=== PATIENT | female | born 1945 | race Caucasian/White ===

== ENCOUNTER 2016-12-19 09:35 | Emergency (ER) | payer MEDICARE ==
--- NOTE | 2016-12-19 11:29 | UC ---
Minor Trauma HPI - HPI Summary HPI Summary: 71 yo female fell forward (trip) about a wk ago no LOC c/o right knee pain also mild nose pain and bilateral hand pain no neck pain no DORSEY has chronic back pain - History of Current Complaint Chief Complaint: UCTrauma Stated Complaint: FELL HAND FACE AND KNEE INJURY Time Seen by Provider: 12/19/16 11:02 Hx Obtained From: Patient Onset/Duration: Sudden Onset, Lasting Days Severity Initially: Moderate Severity Currently: Moderate Pain Intensity: 4 Pain Scale Used: 0-10 Numeric Mechanism Of Injury: Fall From A Standing Position Aggravating Factor(s): Ambulation Alleviating Factor(s): Rest Associated Signs And Symptoms: Positive: Ecchymosis, Swelling - Allergies/Home Medications Allergies/Adverse Reactions: Allergies Allergy/AdvReac Type Severity Reaction Status Date / Time Clindamycin/Lincomycin Allergy Unknown Hives Verified 12/19/16 09:56 Erythromycin Allergy Unknown Hives Verified 12/19/16 09:56 Penicillins Allergy Unknown Hives Verified 12/19/16 09:56 Sucralfate [From Carafate] Allergy Hives Verified 12/19/16 12:19 Morphine and Related AdvReac Unknown Unknown Verified 09/07/15 09:41 Reaction Details Home Medications: Home Medications Artificial Tear Ointment [Refresh P.m] 1 applic OPHTHALMIC DAILY 12/19/16 [ History Confirmed 12/19/16] Dexlansoprazole (NF) [Dexilant (NF)] 1 tab PO DAILY 12/19/16 [History Confirmed 12/19/16] Dicyclomine CAP* [Bentyl CAP*] 20 mg PO TID AC 12/19/16 [History Confirmed 12/19] Hydrocortisone 1% CREAM* [Hytone Cream 1%*] 1 applic TOPICAL BID 12/19/16 [ History Confirmed 12/19/16] Ketoconazole (Topical) [Ketoconazole] 1 applic TOPICAL DAILY 12/19/16 [History Confirmed 12/19/16] PMH/Surg Hx/FS Hx/Imm Hx Previously Healthy: No - chronic back pain/djd Cardiovascular History: Hypertension - Surgical History Surgical History: Yes Surgery Procedure, Year, and Place: 1976 rupal,bilat knees,tens unit neuro stimulator,back [id number] spine plate per pt, - Family History Known Family History: Positive: Hypertension, Diabetes - Social History Alcohol Use: None Substance Use Type: None Smoking Status (MU): Never Smoked Tobacco - Immunization History Most Recent Influenza Vaccination: 2014 Most Recent Tetanus Shot: up to date Most Recent Pneumonia Vaccination: received Review of Systems Constitutional: Negative Skin: Bruising Eyes: Negative ENT: Negative Respiratory: Negative Cardiovascular: Negative Gastrointestinal: Negative Genitourinary: Negative Motor: Negative Neurovascular: Negative Musculoskeletal: Arthralgia, Myalgia Neurological: Negative Psychological: Negative All Other Systems Reviewed And Are Negative: Yes Physical Exam Triage Information Reviewed: Yes Appearance: Well-Appearing, No Pain Distress, Well-Nourished Vital Signs: Initial Vital Signs Temp 98.2 F 12/19/16 09:58 Pulse 65 12/19/16 09:58 Resp 20 12/19/16 09:58 BP 147/95 12/19/16 09:58 Pulse Ox 96 12/19/16 09:58 Vital Signs Reviewed: Yes Eyes: Positive: Conjunctiva Clear ENT: Positive: Hearing grossly normal. Negative: Nasal congestion, Nasal drainage, Trismus Neck: Positive: Supple, Nontender Respiratory: Positive: Lungs clear, Normal breath sounds, No respiratory distress, No accessory muscle use Cardiovascular: Positive: RRR, No Murmur Neurological: Positive: Alert Psychological Exam: Normal Skin Exam: Normal Minor Trauma Course/Dx - Differential Dx/Diagnosis Provider Diagnoses: right knee contusion. nasal contusion. bilateral hand contusions Discharge - Discharge Plan Condition: Stable Disposition: HOME Patient Education Materials: Contusion in Adults (ED) Referrals: No Primary Care Phys,NOPCP [Primary Care Provider] - Additional Instructions: see your back specialist as planned rest ice elevation Images Head: 1 - tender/swollen/no deformity Hands: 1 - tender 2 - tender Front/Back of Body, Lg (Bowman): 1 - swollen/ecchymotic. both hips FROM
[2016-12-19 12:11] VITALS: BP 159/92
--- NOTE | 2016-12-19 12:33 | RAD ---
INDICATION: Right knee injury. TECHNIQUE: 4 views of the right knee were obtained. FINDINGS: The patient is status post total right knee replacement surgery. The bones and prostheses are in normal alignment. No fracture is seen. IMPRESSION: POSTSURGICAL CHANGES, NO EVIDENCE FOR FRACTURE.
--- NOTE | 2016-12-19 12:35 | RAD ---
INDICATION: Right femur injury. TECHNIQUE: 2 views of the right femur were obtained. FINDINGS: The patient is status post total right knee replacement surgery. The bones and prostheses are in normal alignment. No fracture is seen. IMPRESSION: POSTSURGICAL CHANGES, NO EVIDENCE FOR FRACTURE.
--- NOTE | 2016-12-19 12:36 | RAD ---
INDICATION: Nasal bone trauma. TECHNIQUE: 3 views of the nasal bones were obtained including lateral and Vela views. FINDINGS: There is soft tissue swelling present over the bridge of the nose. No fracture is seen. IMPRESSION: NO EVIDENCE FOR FRACTURE.
== END 2016-12-19 13:10 | disposition home or self-care (01) ==
LOC: UCEAST 09:35
DX: I10 Essential (primary) hypertension (principal); S80.01XA Contusion of right knee, initial encounter; S00.33XA Contusion of nose, initial encounter; S60.222A Contusion of left hand, initial encounter; S60.221A Contusion of right hand, initial encounter; M25.561 Pain in right knee; W19.XXXA Unspecified fall, initial encounter; Y93.9 Activity, unspecified; Y92.9 Unspecified place or not applicable; Y99.9 Unspecified external cause status; M54.9 Dorsalgia, unspecified; G89.29 Other chronic pain
CPT/HCPCS: 70160; 99211; G0463

== ENCOUNTER 2017-06-18 09:33 | Emergency (ER) | payer MEDICARE ==
--- NOTE | 2017-06-18 10:34 | UC ---
Complaint Female HPI - HPI Summary HPI Summary: 5 DAYS OF DARK COLORED URINE AND SOME DISCOMFORT WITH URINATION. IS FEELING EXTREMELY WEAK AND TIRED. HAS OVERALL MALAISE, DECREASED APPETITE. DENIES NAUSEA. NO FEVER. NO URI SX. AT [facility] AMBULATES WITH A WALKER WITHOUT DIFFICULTY. NOW STATES SHE CAN NOT EVEN WALK FROM THE WAITING ROOM TO THE EXAM ROOM WITHOUT BECOMING EXTREMELY TIRED. DENIES SOB/CP. - History Of Current Complaint Chief Complaint: UCGU Stated Complaint: UTI Time Seen by Provider: 06/18/17 09:36 Hx Obtained From: Patient Onset/Duration: Gradual Onset, Lasting Days, Still Present Timing: Constant Severity Initially: Moderate Severity Currently: Moderate Pain Intensity: 0 Pain Scale Used: 0-10 Numeric Character: Burning Aggravating Factor(s): Urination Alleviating Factor(s): Nothing Associated Signs And Symptoms: Negative: Fever, Nausea - Allergies/Home Medications Allergies/Adverse Reactions: Allergies Allergy/AdvReac Type Severity Reaction Status Date / Time Clindamycin/Lincomycin Allergy Unknown Hives Verified 12/19/16 09:56 Erythromycin Allergy Unknown Hives Verified 12/19/16 09:56 Penicillins Allergy Unknown Hives Verified 12/19/16 09:56 Sucralfate [From Carafate] Allergy Hives Verified 12/19/16 12:19 Morphine and Related AdvReac Unknown Unknown Verified 09/07/15 09:41 Reaction Details PMH/Surg Hx/FS Hx/Imm Hx - Additional Past Medical History Additional PMH: CHRONIC BACK PAIN Cardiovascular History: Hypertension Other Cancer History: SKIN CANCER - Surgical History Surgical History: Yes Surgery Procedure, Year, and Place: 1976 rupal,bilat knees,tens unit neuro stimulator,back [id number] spine plate per pt, - Family History Known Family History: Positive: Hypertension, Diabetes - Social History Alcohol Use: None Substance Use Type: None Smoking Status (MU): Never Smoked Tobacco - Immunization History Most Recent Influenza Vaccination: 2015 Most Recent Tetanus Shot: up to date Most Recent Pneumonia Vaccination: received Review of Systems Constitutional: Negative Respiratory: Negative Cardiovascular: Negative Gastrointestinal: Abdominal Pain, Other - FEELS BLOATED Genitourinary: Dysuria, Other - DARK FOUL SMELLING URINE All Other Systems Reviewed And Are Negative: Yes Physical Exam Triage Information Reviewed: Yes Appearance: Well-Appearing, No Pain Distress, Well-Nourished Vital Signs: Initial Vital Signs Temp 97.2 F 06/18/17 09:39 Pulse 75 06/18/17 09:39 Resp 18 06/18/17 09:39 BP 159/83 06/18/17 09:39 Pulse Ox 97 06/18/17 09:39 Vital Signs Reviewed: Yes Eyes: Positive: Conjunctiva Clear ENT: Positive: Hearing grossly normal Neck: Positive: Supple Respiratory Exam: Normal Cardiovascular Exam: Normal Abdomen Description: Positive: Soft, CVA Tenderness (R), Other: - TTP UPPER ABDOMEN. NO REBOUND OR RIGIDITY.. Negative: CVA Tenderness (L), Distended Musculoskeletal: Positive: No Edema Neurological: Positive: Alert Psychological: Positive: Age Appropriate Behavior Skin: Negative: rashes Diagnostics - Laboratory Diagnostic Studies Completed/Ordered: URINE DIP UNREMARKABLE - Radiology CT ABD/PELVIS W/O CONTRAST Xray Interpretation: Positive (See Comments) - No definite obstructive uropathy is noted. Incidentally noted is a right renal cyst. Radiology Interpretation Completed By: Radiologist Complaint Female Dx - Course Course Of Treatment: [place] [facility] [place] [facility] - Differential Dx/Diagnosis Provider Diagnoses: ABDOMINAL PAIN/WEAKNESS/FATIGUE Discharge - Discharge Plan Condition: Stable Disposition: OTHER Discharge Disposition Comment: [place] [facility] [place] [facility] Patient Education Materials: Abdominal Pain (ED) Referrals: Loree RG,Janusz Huynh [Medical Doctor] - If Needed Additional Instructions: CT SHOWS A SMALL RIGHT RENAL CYST BUT NO CLEAR REASON FOR YOUR DISCOMFORT AND WEAKNESS/FATIGUE. GO DIRECTLY [place] [facility] [place] HERE FOR FURTHER EVALUATION.
[2017-06-18 11:39] VITALS: BP 128/78
--- NOTE | 2017-06-18 11:44 | RAD ---
Indication: Right flank pain. CT of the abdomen and pelvis was performed without oral or IV contrast administration. Coronal and sagittal reconstructed images were obtained. Lung bases demonstrate no pleural fluid, nodules or masses. Degenerative changes of the lower thoracic spine is noted. Liver is normal in size. No focal lesions or intrahepatic ductal dilatation is noted. Patient status post cholecystectomy. Pancreas demonstrates no mass or pancreatic ductal dilatation. The spleen is normal in size. No adrenal lesions are noted. The kidneys demonstrate no hydronephrosis in either kidney. No hydroureter is noted. There is likely a lower pole cyst in the right kidney measuring up to 2.5 cm. Atherosclerotic aorta is noted. The common iliac arteries are unremarkable. The uterus and ovaries are unremarkable. No dilated loops of bowel are noted. CT of the pelvis demonstrates no retroperitoneal or pelvic lymphadenopathy. Urinary bladder is unremarkable. There is laxity of the anterior abdominal wall without definite hernia. The right sacroiliac joint is noted. The uterus and ovaries are grossly unremarkable. The bony structures demonstrates postoperative changes in the lumbar spine. IMPRESSION: No definite obstructive uropathy is noted. Incidentally noted is a right renal cyst.
== END 2017-06-18 12:03 ==
LOC: UCEAST 09:33
DX: R10.10 Upper abdominal pain, unspecified (principal); R53.1 Weakness; R53.83 Other fatigue; R30.0 Dysuria; I10 Essential (primary) hypertension; Z85.828 Personal history of other malignant neoplasm of skin; Z90.49 Acquired absence of other specified parts of digestive tract; Z88.1 Allergy status to other antibiotic agents; Z88.5 Allergy status to narcotic agent; Z88.0 Allergy status to penicillin
CPT/HCPCS: 74176; 81003; 99212; G0463

== ENCOUNTER 2017-06-18 12:33 | Emergency (ER) | payer MEDICARE ==
[2017-06-18 14:29] LABS: ABS Basophils 0.1 10^3/ul (0-0.2); ABS Eosinophils 0.2 10^3/ul (0-0.6); ABS Lymphocytes 1.8 10^3/ul (1.0-4.8); ABS Monocytes 1.3 10^3/ul (0-0.8); ABS Neutrophils 4.1 10^3/ul (1.5-7.7); ABS Nucleated RBC 0 10^3/ul; Eosinophil % 2.2 % (0-6); Hematocrit 38 % (35-47); Hemoglobin 12.6 g/dl (12.0-16.0); Lymphocyte % 24.5 % (25-47); Mean Corpuscular HGB Conc 33 g/dl (31-36); Mean Corpuscular Hemoglobin 30 pg (27-31); Mean Corpuscular Volume 90 fL (80-97); Mean Platelet Volume 9 um3 (7.4-10.4); Nucleated Red Blood Cells % 0; Platelet Count 221 10^3/ul (150-450); Red Blood Count 4.18 10^6/ul (4.0-5.4); Red Cell Distribution Width 14 % (10.5-15); White Blood Count 7.4 10^3/ul (3.5-10.8)
[2017-06-18 14:45] LABS: Urine Appearance Clear; Urine Blood Negative (Negative); Urine Color Yellow; Urine Ketones Negative (Negative); Urine Protein Negative (Negative); Urine Specific Gravity 1.004 (1.010-1.030); Urine Urobilinogen Negative (Negative)
[2017-06-18 15:11] LABS: INR 1.01 (0.77-1.02)
--- NOTE | 2017-06-18 17:54 | RAD ---
HISTORY: Epigastric pain x1 week. Relevant surgical history includes a cholecystectomy. COMPARISONS: CT abdomen pelvis dated June 18, 2017 TECHNIQUE: Multiple transverse and longitudinal ultrasound images were obtained of the right upper quadrant. FINDINGS: LIVER: The liver exhibits homogenous increased echogenicity and is top normal measuring 20.9 cm in maximum cephalocaudal dimension. Normal hepatic and portal venous blood flow is duplicated with color flow imaging. There is no gross intrahepatic biliary duct dilatation. GALLBLADDER AND EXTRAHEPATIC BILIARY DUCT: The gallbladder is surgically absent. The gallbladder exhibits a maximum width of 9 mm. PANCREAS: The portions of the pancreas not obscured by bowel gas are normal in appearance. RIGHT KIDNEY: A benign-appearing cyst is noted in the right kidney. Otherwise the right kidney is normal in size, morphology and echogenicity. AORTA AND IVC: The visualized portions are normal in appearance and not pathologically dilated. IMPRESSION: 1. HOMOGENOUSLY INCREASED ECHOGENICITY COULD BE SEEN IN THE SETTING OF HEPATIC STEATOSIS. 2. APPROPRIATELY DILATED COMMON BILE DUCT TO 9 MM IN THE PATIENT WITH A HISTORY OF CHOLECYSTECTOMY.
[2017-06-18 19:38] VITALS: BP 169/80
--- NOTE | 2017-06-19 12:29 | ED ---
Mark Lopes Thomas, scribed for Roman Jenkins MD on 06/18/17 at 1405 . Abdominal Pain/Female - HPI Summary HPI Summary: This patient is a 71 year old F presenting to [facility] with a chief complaint of abdominal pain since 3 days ago. The patient describes the pain as bloating. The patient rates the pain 5/10 in severity. Symptoms aggravated by palpation and alleviated by nothing. Patient reports my stomach feels likes Im . Patient additionally complains of bright yellow urine, generalized weakness , and she is unable to stand or ambulate. Patient denies vomiting, diarrhea, nausea, and cough. - History of Current Complaint Chief Complaint: EDAbdPain Stated Complaint: ABD PAIN Time Seen by Provider: 06/18/17 13:26 Hx Obtained From: Patient Onset/Duration: Gradual Onset, Lasting Days - 3, Still Present Timing: Constant Severity Currently: Moderate Pain Intensity: 5 Pain Scale Used: 0-10 Numeric - 5 Location: Diffuse Character: Other: - The patient describes the pain as bloating. Aggravating Factor(s): Other: - Palpation Alleviating Factor(s): Nothing Associated Signs and Symptoms: Positive: Other: - The patient describes the pain as bloating. Allergies/Adverse Reactions: Allergies Allergy/AdvReac Type Severity Reaction Status Date / Time Clindamycin/Lincomycin Allergy Unknown Hives Verified 06/18/17 13:25 Erythromycin Allergy Unknown Hives Verified 06/18/17 13:25 Penicillins Allergy Unknown Hives Verified 06/18/17 13:25 Sucralfate [From Carafate] Allergy Hives Verified 06/18/17 13:25 Morphine and Related AdvReac Unknown Unknown Verified 06/18/17 13:25 Reaction Details PMH/Surg Hx/FS Hx/Imm Hx Endocrine/Hematology History: Denies: Hx Diabetes Cardiovascular History: Reports: Hx Hypertension History: Reports: Hx Renal Disease - abnormal gfr - Cancer History Cancer Type, Location and Year: multiple skin surgeries - Surgical History Surgery Procedure, Year, and Place: 1976 rupal,bilat knees,tens unit neuro stimulator,back [id number] spine plate per pt, Infectious Disease History: No Infectious Disease History: Denies: Hx Shingles, History Other Infectious Disease, Traveled Outside the [place] in Last 30 Days - Family History Known Family History: Positive: Hypertension, Diabetes - Social History Alcohol Use: None Substance Use Type: Reports: None Smoking Status (MU): Never Smoked Tobacco Review of Systems Negative: Fever Negative: Cough Positive: Abdominal Pain. Negative: Vomiting, Diarrhea, Nausea Positive: Other - Generalized weakness, and she is unable to stand or ambulate All Other Systems Reviewed And Are Negative: Yes Physical Exam - Summary Physical Exam Summary: Appearance: The patient is well-nourished in no acute distress and in no acute pain. Skin: The skin is warm and dry and skin color reflects adequate perfusion. HEENT: The head is normocephalic and atraumatic. The pupils are equal and reactive. The conjunctivae are clear and without drainage. Nares are patent and without drainage. Mouth reveals moist mucous membranes and the throat is without erythema and exudate. The external ears are intact. The ear canals are patent and without drainage. The tympanic membranes are intact. Neck: the neck is supple with full range of motion and non-tender. There are no carotid bruits. There is no neck vein distension. Respiratory: Chest is non-tender. Lungs are clear to auscultation and breath sounds are symmetrical and equal. Cardiovascular: Heart is regular rate and rhythm. There is no murmur or rub auscultated. There is no peripheral edema and pulses are symmetrical and equal. Abdomen: The abdomen is soft and periumbilical tenderness is present. There are normal bowel sounds heard in all four quadrants with no rebound or guarding, and there is no organomegaly palpated. Musculoskeletal: There is no back tenderness noted. Extremities are non-tender with full range of motion. There is good capillary refill. There is no peripheral edema or calf tenderness elicited. Neurological: Patient is alert and oriented to person, place and time. The patient has symmetrical motor strength in all four extremities. Cranial nerves are grossly intact. Deep tendon reflexes are symmetrical and equal in all four extremities. Psychiatric: The patient has an appropriate affect and does not exhibit any anxiety or depression. Triage Information Reviewed: Yes Vital Signs On Initial Exam: Initial Vitals Temp Pulse Resp BP Pulse Ox 97.2 F 72 20 172/108 98 06/18/17 12:42 06/18/17 12:42 06/18/17 12:42 06/18/17 12:42 06/18/17 12:42 Vital Signs Reviewed: Yes - Miguel Coma Scale Coma Scale Total: 15 Diagnostics - Vital Signs Vital Signs Temp Pulse Resp BP Pulse Ox 06/18/17 12:42 97.2 F 72 20 172/108 98 - Laboratory Lab Results: Lab Results 06/18/17 06/18/17 06/18/17 Range/Units 14:10 14:10 14:10 WBC 7.4 (3.5-10.8) 10^3/ul RBC 4.18 (4.0-5.4) 10^6/ul Hgb 12.6 (12.0-16.0) g/dl Hct 38 (35-47) % MCV 90 (80-97) fL MCH 30 (27-31) pg MCHC 33 (31-36) g/dl RDW 14 (10.5-15) % Plt Count 221 (150-450) 10^3/ul MPV 9 (7.4-10.4) um3 Neut % (Auto) 55.0 (38-83) % Lymph % (Auto) 24.5 L (25-47) % Dubois % (Auto) 17.4 H (1-9) % Eos % (Auto) 2.2 (0-6) % Baso % (Auto) 0.9 (0-2) % Absolute Neuts (auto) 4.1 (1.5-7.7) 10^3/ul Absolute Lymphs (auto) 1.8 (1.0-4.8) 10^3/ul Absolute Monos (auto) 1.3 H (0-0.8) 10^3/ul Absolute Eos (auto) 0.2 (0-0.6) 10^3/ul Absolute Basos (auto) 0.1 (0-0.2) 10^3/ul Absolute Nucleated RBC 0 10^3/ul Nucleated RBC % 0 INR (Anticoag Therapy) 1.01 (0.77-1.02) Sodium 136 (133-145) mmol/L Potassium 3.1 L (3.5-5.0) mmol/L Chloride 100 L (101-111) mmol/L Carbon Dioxide 26 (22-32) mmol/L Anion Gap 10 (2-11) mmol/L BUN 20 (6-24) mg/dL Creatinine 0.87 (0.51-0.95) mg/dL Est GFR ( Amer) 82.3 (>60) Est GFR (Non-Af Amer) 64.0 (>60) BUN/Creatinine Ratio 23.0 H (8-20) Glucose 106 H (70-100) mg/dL Lactic Acid (0.5-2.0) mmol/L Calcium 9.0 (8.6-10.3) mg/dL Total Bilirubin 1.40 H (0.2-1.0) mg/dL AST 36 (13-39) U/L ALT 84 H (7-52) U/L Alkaline Phosphatase 192 H (34-104) U/L Troponin I 0.01 (<0.04) ng/mL C-Reactive Protein 101.51 H (< 5.00) mg/L Total Protein 6.9 (6.4-8.9) g/dL Albumin 3.4 (3.2-5.2) g/dL Globulin 3.5 (2-4) g/dL Albumin/Globulin Ratio 1.0 (1-3) Lipase 25 (11.0-82.0) U/L Urine Color Urine Appearance Urine pH (5-9) Ur Specific Roscoe (1.010-1.030) Urine Protein (Negative) Urine Ketones (Negative) Urine Blood (Negative) Urine Nitrate (Negative) Urine Bilirubin (Negative) Urine Urobilinogen (Negative) Ur Leukocyte Esterase (Negative) Urine Glucose (Negative) 06/18/17 06/18/17 Range/Units 14:10 14:25 WBC (3.5-10.8) 10^3/ul RBC (4.0-5.4) 10^6/ul Hgb (12.0-16.0) g/dl Hct (35-47) % MCV (80-97) fL MCH (27-31) pg MCHC (31-36) g/dl RDW (10.5-15) % Plt Count (150-450) 10^3/ul MPV (7.4-10.4) um3 Neut % (Auto) (38-83) % Lymph % (Auto) (25-47) % Dubois % (Auto) (1-9) % Eos % (Auto) (0-6) % Baso % (Auto) (0-2) % Absolute Neuts (auto) (1.5-7.7) 10^3/ul Absolute Lymphs (auto) (1.0-4.8) 10^3/ul Absolute Monos (auto) (0-0.8) 10^3/ul Absolute Eos (auto) (0-0.6) 10^3/ul Absolute Basos (auto) (0-0.2) 10^3/ul Absolute Nucleated RBC 10^3/ul Nucleated RBC % INR (Anticoag Therapy) (0.77-1.02) Sodium (133-145) mmol/L Potassium (3.5-5.0) mmol/L Chloride (101-111) mmol/L Carbon Dioxide (22-32) mmol/L Anion Gap (2-11) mmol/L BUN (6-24) mg/dL Creatinine (0.51-0.95) mg/dL Est GFR ( Amer) (>60) Est GFR (Non-Af Amer) (>60) BUN/Creatinine Ratio (8-20) Glucose (70-100) mg/dL Lactic Acid 0.8 (0.5-2.0) mmol/L Calcium (8.6-10.3) mg/dL Total Bilirubin (0.2-1.0) mg/dL AST (13-39) U/L ALT (7-52) U/L Alkaline Phosphatase (34-104) U/L Troponin I (<0.04) ng/mL C-Reactive Protein (< 5.00) mg/L Total Protein (6.4-8.9) g/dL Albumin (3.2-5.2) g/dL Globulin (2-4) g/dL Albumin/Globulin Ratio (1-3) Lipase (11.0-82.0) U/L Urine Color Yellow Urine Appearance Clear Urine pH 6.0 (5-9) Ur Specific Roscoe 1.004 L (1.010-1.030) Urine Protein Negative (Negative) Urine Ketones Negative (Negative) Urine Blood Negative (Negative) Urine Nitrate Negative (Negative) Urine Bilirubin Negative (Negative) Urine Urobilinogen Negative (Negative) Ur Leukocyte Esterase Negative (Negative) Urine Glucose Negative (Negative) Result Diagrams: 06/18/17 14:10 06/18/17 14:10 Lab Statement: Any lab studies that have been ordered have been reviewed, and results considered in the medical decision making process. - Additional Comments Diagnostic Additional Comments: Abdominal US reveals, per radiologist, 1. HOMOGENOUSLY INCREASED ECHOGENICITY COULD BE SEEN IN THE SETTING OF HEPATIC STEATOSIS. 2. APPROPRIATELY DILATED COMMON BILE DUCT TO 9 MM IN THE PATIENT WITH A HISTORY OF CHOLECYSTECTOMY. ED physician has reviewed this radiology report. Abdominal Pain Fem Course/Dx - Course Course Of Treatment: Ms. Cary presented with nondescript abdominal pain and bloating. She came from [facility] where she had a negative noncontrast abd/pelvis CT scan. She had periumbilical and RUQ tenderness mildly. Her labs revealed some transaminase elevations and U/S of her RUQ was negative. I'm not sure if this is medication induced or viral but I reassured her and recommended close F/ U to reevaluate her liver function. - Diagnoses Provider Diagnoses: Abdominal pain, Elevated transaminase level Discharge - Discharge Plan Condition: Stable Disposition: HOME Prescriptions: traMADol TAB* [Ultram*] 25 mg PO Q6HR PRN #20 tab MDD 4 PRN Reason: Pain Patient Education Materials: Abdominal Pain (ED) Referrals: Loree RG,Janusz Huynh [Primary Care Provider] - 3 Days Additional Instructions: Follow up with Dr. Ralph in 3-4 days. The documentation as recorded by the Mark schaefer Thomas accurately reflects the service I personally performed and the decisions made by , Roman Jenkins MD.
== END 2017-06-18 19:48 | disposition home or self-care (01) ==
LOC: ED 12:33
DX: R10.9 Unspecified abdominal pain (principal); R74.0 Nonspecific elevation of levels of transaminase and lactic acid dehydrogenase [LDH]; Z90.49 Acquired absence of other specified parts of digestive tract; Z88.3 Allergy status to other anti-infective agents; Z88.0 Allergy status to penicillin; Z88.8 Allergy status to other drugs, medicaments and biological substances
CPT/HCPCS: 36415; 76705; 80053; 81003; 83605; 83690; 84484; 85025; 85610; 86140; 99283

== ENCOUNTER 2017-10-30 09:29 | Emergency (ER) | payer MEDICARE ==
--- NOTE | 2017-10-30 09:53 | UC ---
Respiratory Complaint HPI - HPI Summary HPI Summary: 72 yo female presents with fatigue, intermittent dizziness, and dry cough for the last 2-3 days. Does notice that she feels more short of breath with exertion recently. Has been taking her medications as prescribed. Denies fever, chills, sore throat, headache, SOB, chest pain, n/v/d, dysuria. Also has RUQ pain, but she tells me that this is chronic and is being worked up by PCP and Surgeon. - History of Current Complaint Stated Complaint: COUGH/CHEST IN PAIN AND STOMACH Time Seen by Provider: 10/30/17 09:53 Hx Obtained From: Patient Character: Cough: Nonproductive - Allergies/Home Medications Allergies/Adverse Reactions: Allergies Allergy/AdvReac Type Severity Reaction Status Date / Time clindamycin Allergy Hives Verified 10/30/17 10:00 erythromycin base Allergy Hives Verified 10/30/17 10:00 morphine Allergy Unknown Verified 10/30/17 10:00 Reaction Details Penicillins Allergy Hives Verified 10/30/17 10:00 sucralfate [From Carafate] Allergy Hives Verified 10/30/17 10:00 Home Medications: Home Medications Diclofenac 1% GEL (NF) [Voltaren 1% GEL (NF)] 1 applic TOPICAL 10/30/17 [History ] PMH/Surg Hx/FS Hx/Imm Hx Cardiovascular History: Cardiac Disease, Hypertension - Surgical History Surgical History: Yes Surgery Procedure, Year, and Place: 1976 rupal,bilat knees,tens unit neuro stimulator,back [id number] spine plate per pt, - Family History Known Family History: Positive: Hypertension, Diabetes - Social History Occupation: Retired Lives: With Family Alcohol Use: None Substance Use Type: None Smoking Status (MU): Never Smoked Tobacco - Immunization History Most Recent Influenza Vaccination: 2014 Most Recent Tetanus Shot: up to date Most Recent Pneumonia Vaccination: received Review of Systems Constitutional: Negative Skin: Negative Eyes: Negative ENT: Negative Respiratory: Cough Cardiovascular: Other - PEREZ Gastrointestinal: Abdominal Pain Genitourinary: Negative Neurovascular: Negative Musculoskeletal: Negative Neurological: Negative Psychological: Negative All Other Systems Reviewed And Are Negative: Yes Physical Exam - Summary Physical Exam Summary: GENERAL: NAD. Obese SKIN: No rashes, sores, ulcers, masses, lesions. HEENT: Head: AT/NC Eyes: PERRLA. EOM intact. Conjunctiva clear without inflammation or discharge. Ears: Hearing grossly normal. TMs intact, no bulging, erythema, or edema. Nose: Nasal mucosa pink and moist. NTTP maxillary and frontal sinus. Throat: Posterior oropharynx without exudates, erythema, or tonsillar enlargement. Uvula midline. NECK: Supple. Nontender. No lymphadenopathy. CHEST: CTAB. No r/r/w. No accessory muscle use. Breathing comfortably and in no distress. CV: Pulses intact and irregular. Brisk cap refill. ABDOMEN: Soft. Mild TTP RUQ. No distention or guarding. No CVA tenderness. Bowel sounds present NEURO: A&Ox3. CN II-XII grossly intact. Finger to nose intact. Strength symmetric b/l UEs and LEs. Normal speech. No facial drooping. PSYCH: Age appropriate behavior. Triage Information Reviewed: Yes Vital Signs: Vital Signs: Temp Pulse Resp BP Pulse Ox 98.6 F 65 20 127/80 94 10/30/17 10:01 10/30/17 10:01 10/30/17 10:01 10/30/17 10:01 10/30/17 10:01 Respiratory Course/Dx - Course Course Of Treatment: EKG: Afib rate 59. No ST changes as read by Dr. Brown. Telemetry in July was read as NSR - no more recent for comparison and pt states has no hx of heart problems other than HTN. CXR: IMPRESSION: NO ACTIVE DISEASE. Advised pt to go to the ED for labwork and possible admission for cards consult and intialization of anticoag therapy - she refused. Risks were discussed and pt still refused. Wants to f/u with her PCP and will call them when she leaves here. She signed out AMA. - Differential Dx/Diagnosis Provider Diagnoses: Atrial fibrillation. Fatigue. Cough Discharge - Sign-Out/Discharge Documenting (check all that apply): Discharge/Admit/Transfer - Discharge Plan Condition: Stable Disposition: AGAINST MEDICAL ADVICE Referrals: Loree RG,Janusz Huynh [Primary Care Provider] - - Billing Disposition and Condition Condition: STABLE Disposition: AMA
[2017-10-30 10:05] VITALS: BP 127/80
--- NOTE | 2017-10-30 11:11 | RAD ---
INDICATION: Cough COMPARISON: None TECHNIQUE: PA and lateral dual-energy views were obtained. FINDINGS: Bones/Soft Tissues: There are no acute bony findings. There is osteopenia with kyphoscoliosis Cardiomediastinal: The cardiomediastinal silhouette is normal. Lungs: There are no infiltrates. Pleura: There are no pleural effusions. Other: There is a dorsal column stimulator at T7. IMPRESSION: NO ACTIVE DISEASE
== END 2017-10-30 11:50 | disposition left against medical advice (07) ==
LOC: UCEAST 09:29
DX: I48.91 Unspecified atrial fibrillation (principal); R53.83 Other fatigue; R05 Cough; R10.11 Right upper quadrant pain; I10 Essential (primary) hypertension; Z90.49 Acquired absence of other specified parts of digestive tract; Z88.1 Allergy status to other antibiotic agents; Z88.5 Allergy status to narcotic agent; Z88.0 Allergy status to penicillin
CPT/HCPCS: 71046; 93005; 99212; G0463

== ENCOUNTER 2022-02-02 21:33 | Inpatient (IN) ==
[2022-02-02] MEDS ORDERED: cefTRIAXone 1 gm/50 mL D5W 1 GM/50 ML BAG IV ONE (21:35)
[2022-02-02] MEDS ORDERED: NS 0.9% 1000 ml BAG 1,000 ML IV ONE ×2 (21:35→21:47)
[2022-02-02] MEDS ORDERED: Vancomycin 1,000 MG in NS 0.9% 250 ml 250 ML IVPB ONE (21:47)
[2022-02-02 22:07] LABS: PCO2 Arterial 32 mmHg (35-45); PO2 Arterial 79 mmHg (80-100)
[2022-02-02 22:11] LABS: ABS Basophils 0.1 10^3/ul (0-0.2); ABS Lymphocytes 0.8 10^3/ul (1.0-4.8); ABS Monocytes 0.9 10^3/ul (0-0.8); ABS Neutrophils 9.3 10^3/ul (1.5-7.7); Hematocrit 43 % (35-47); Hemoglobin 14.1 g/dL (12.0-16.0); Lymphocyte % 7.1 %; Mean Corpuscular HGB Conc 33 g/dL (31-36); Mean Corpuscular Hemoglobin 32 pg (27-31); Mean Corpuscular Volume 98 fL (80-97); Mean Platelet Volume 9.4 fL (7.4-10.4); Platelet Count 234 10^3/uL (150-450); Red Blood Count 4.42 10^6 /uL (3.70-4.87); Red Cell Distribution Width 15 % (10-15); White Blood Count 11.1 10^3/uL (3.5-10.8)
[2022-02-02 22:16] LABS: INR 1.06 (0.89-1.11)
[2022-02-02 22:57] LABS: Albumin/Globulin Ratio 1.2 (1-3); Calcium 9.2 mg/dL (8.6-10.3); Globulin 3.3 g/dL (2-4); Magnesium 1.7 mg/dL (1.9-2.7); Potassium 4.5 mmol/L (3.5-5.0); Total Bilirubin 0.7 mg/dL (0.2-1.0); Total Protein 7.3 g/dL (6.4-8.9); eGFR CKD-EPI 44.4 (>60)
[2022-02-02 23:11] LABS: TSH Ultra Thyroid Stim Horm 1.72 mcIU/mL (0.34-5.60)
[2022-02-02] MEDS ORDERED: Iodixanol (CONTRAST) 320 MG/ML 100 ML SDV IV ONE (23:33)
[2022-02-02] MEDS ORDERED: Enoxaparin 40 MG/0.4 ML SYR SUBCUT SCH (23:45)
[2022-02-02 23:50] LABS: High Sensitivity Troponin 1 Hr < 3 pg/mL (<15)
[2022-02-03] MEDS ORDERED: Lactated Ringers 1000 ml BAG 1,000 ML IV SCH
[2022-02-03] MEDS ORDERED: Saline NASAL SPRAY 0.65% BTL BOTH NARES PRN (00:19)
[2022-02-03] MEDS: metroNIDAZOLE IV 500 MG/100ML 500 MG/100 ML BAG IVPB SCH ×2 (00:42→06:31)
[2022-02-03] MEDS ORDERED: Vancomycin per Pharmacy 1 EA NOTE FOLLOW UP SCH (01:00)
[2022-02-03 04:15] LABS: Urine Appearance Clear; Urine Bilirubin Negative (Negative); Urine Blood Trace (Intact) (Negative); Urine Color Yellow; Urine Glucose Negative (Negative); Urine Ketones Negative (Negative); Urine Nitrite Positive (Negative); Urine Protein Trace (Negative); Urine Specific Gravity 1.025 (1.005-1.030); Urine Urobilinogen 0.2 (Negative) (Negative)
[2022-02-03 04:49] LABS: Urine Bacteria 3+ (Absent); Urine Red Blood Cell 3+(>10/hpf) (Absent); Urine Squamous Epithelial Cell Present (Absent); Urine White Blood Cell 3+(>20/hpf) (Absent)
[2022-02-03 07:52] LABS: ABS Monocytes 1.4 10^3/ul (0-0.8); ABS Neutrophils 8.4 10^3/ul (1.5-7.7); Eosinophil % 0.1 %; Hematocrit 40 % (35-47); Hemoglobin 12.7 g/dL (12.0-16.0); Lymphocyte % 9.3 %; Mean Corpuscular HGB Conc 32 g/dL (31-36); Mean Corpuscular Hemoglobin 32 pg (27-31); Mean Corpuscular Volume 101 fL (80-97); Mean Platelet Volume 9.2 fL (7.4-10.4); Platelet Count 170 10^3/uL (150-450); Red Blood Count 3.95 10^6 /uL (3.70-4.87); Red Cell Distribution Width 15 % (10-15); White Blood Count 10.9 10^3/uL (3.5-10.8)
[2022-02-03 08:09] LABS: Calcium 8.2 mg/dL (8.6-10.3)
[2022-02-03 08:15] LABS: C Reactive Protein 85.63 mg/L (<8.01); eGFR CKD-EPI 52.3 (>60)
[2022-02-03 08:43] LABS: Potassium 4.6 mmol/L (3.5-5.0)
[2022-02-03] MEDS: Lidocaine PATCH 5% PATCH TRANSDERM SCH (09:12)
[2022-02-03] MEDS: CYCLOSPORINE 0.05% BOTH EYES SCH ×2 (09:12→20:39)
[2022-02-03] MEDS ORDERED: Lactated Ringers 500 ml BAG 500 ML IV ONE (09:27)
[2022-02-03 11:59] LABS: Magnesium 1.5 mg/dL (1.9-2.7)
[2022-02-03] MEDS ORDERED: Lactated Ringers 1000 ml BAG 1,000 ML IV ONE ×2 (14:33→22:25)
[2022-02-03] MEDS ORDERED: Magnesium Sulf 4 GM/100 ML IV 4,000 MG/100 ML BAG IVPB ONE (14:35)
[2022-02-03] MEDS: Vancomycin 1,250 MG in NS 0.9% 250 ml 250 ML IVPB SCH (14:39)
[2022-02-03] MEDS: cefTRIAXone 1 gm/50 mL D5W 1 GM/50 ML BAG IV SCH (20:38)
[2022-02-04 07:44] LABS: ABS Eosinophils 0.1 10^3/ul (0-0.6); ABS Lymphocytes 1.1 10^3/ul (1.0-4.8); ABS Neutrophils 4.7 10^3/ul (1.5-7.7); Eosinophil % 1.2 %; Hematocrit 33 % (35-47); Lymphocyte % 15.6 %; Mean Corpuscular HGB Conc 33 g/dL (31-36); Mean Corpuscular Hemoglobin 33 pg (27-31); Mean Corpuscular Volume 98 fL (80-97); Mean Platelet Volume 8.8 fL (7.4-10.4); Platelet Count 166 10^3/uL (150-450); Red Blood Count 3.37 10^6 /uL (3.70-4.87); Red Cell Distribution Width 15 % (10-15); White Blood Count 6.9 10^3/uL (3.5-10.8)
[2022-02-04 08:11] LABS: Albumin 2.5 g/dL (3.2-5.2); Albumin/Globulin Ratio 1.1 (1-3); C Reactive Protein 110.49 mg/L (<8.01); Calcium 7.7 mg/dL (8.6-10.3); Globulin 2.3 g/dL (2-4); Potassium 3.9 mmol/L (3.5-5.0); Total Bilirubin 0.4 mg/dL (0.2-1.0); Total Protein 4.8 g/dL (6.4-8.9); eGFR CKD-EPI 80.7 (>60)
[2022-02-04] MEDS: CYCLOSPORINE 0.05% BOTH EYES SCH ×2 (08:28→21:44)
[2022-02-04] MEDS: Lidocaine PATCH 5% PATCH TRANSDERM SCH (08:28)
[2022-02-04] MEDS ORDERED: Ondansetron 4 mg VIAL 2 MG/ML 2 ml VIAL IV PRN (12:53)
[2022-02-04] MEDS: Vancomycin 1,250 MG in NS 0.9% 250 ml 250 ML IVPB SCH (14:37)
[2022-02-04] MEDS ORDERED: Lactated Ringers 1000 ml BAG 1,000 ML IV ONE (14:56)
[2022-02-04] MEDS: cefTRIAXone 1 gm/50 mL D5W 1 GM/50 ML BAG IV SCH (21:45)
[2022-02-05 06:09] LABS: Hematocrit 34 % (35-47); Hemoglobin 11.6 g/dL (12.0-16.0); Mean Corpuscular HGB Conc 34 g/dL (31-36); Mean Corpuscular Hemoglobin 33 pg (27-31); Mean Corpuscular Volume 98 fL (80-97); Mean Platelet Volume 9.2 fL (7.4-10.4); Platelet Count 168 10^3/uL (150-450); Red Blood Count 3.48 10^6 /uL (3.70-4.87); Red Cell Distribution Width 15 % (10-15); White Blood Count 7.1 10^3/uL (3.5-10.8)
[2022-02-05 06:41] LABS: Albumin 2.6 g/dL (3.2-5.2); Albumin/Globulin Ratio 1.1 (1-3); C Reactive Protein 93.22 mg/L (<8.01); Calcium 7.8 mg/dL (8.6-10.3); Globulin 2.4 g/dL (2-4); Magnesium 1.8 mg/dL (1.9-2.7); Potassium 3.9 mmol/L (3.5-5.0); Total Bilirubin 0.3 mg/dL (0.2-1.0); eGFR CKD-EPI 86.1 (>60)
[2022-02-05] MEDS ORDERED: Potassium Chlor 20 meq TAB.ER PO ONE (07:06)
[2022-02-05] MEDS ORDERED: Magnesium Sulfate 2 gm BAG 2 GM/50 ML BAG IVPB ONE (07:06)
[2022-02-05] MEDS: Lidocaine PATCH 5% PATCH TRANSDERM SCH (10:34)
[2022-02-05] MEDS ORDERED: Vancomycin Trough Check NOTE FOLLOW UP ONE (13:30)
[2022-02-05] MEDS: CYCLOSPORINE 0.05% BOTH EYES SCH ×2 (13:40→21:32)
[2022-02-05] MEDS: cefTRIAXone 1 gm/50 mL D5W 1 GM/50 ML BAG IV SCH (21:33)
[2022-02-06 05:32] LABS: Hematocrit 34 % (35-47); Mean Corpuscular HGB Conc 32 g/dL (31-36); Mean Corpuscular Hemoglobin 32 pg (27-31); Mean Corpuscular Volume 98 fL (80-97); Mean Platelet Volume 9.1 fL (7.4-10.4); Platelet Count 188 10^3/uL (150-450); Red Blood Count 3.49 10^6 /uL (3.70-4.87); Red Cell Distribution Width 15 % (10-15); White Blood Count 7.1 10^3/uL (3.5-10.8)
[2022-02-06 05:55] LABS: Calcium 7.8 mg/dL (8.6-10.3); Magnesium 1.9 mg/dL (1.9-2.7); Potassium 4.5 mmol/L (3.5-5.0)
[2022-02-06] MEDS ORDERED: Magnesium Sulfate 2 gm BAG 2 GM/50 ML BAG IVPB ONE (07:18)
[2022-02-06] MEDS: Lidocaine PATCH 5% PATCH TRANSDERM SCH (08:34)
[2022-02-06] MEDS: CYCLOSPORINE 0.05% BOTH EYES SCH ×2 (08:35→21:56)
[2022-02-06] MEDS ORDERED: VACC MRNA IM ONE (15:00)
[2022-02-06] MEDS ORDERED: COVID IM ONE (15:00)
[2022-02-06] MEDS ORDERED: Magnesium Hydroxide LIQ 30 ML UDC PO PRN (15:40)
[2022-02-06] MEDS ORDERED: Senna TAB 8.6 mg TAB PO PRN (15:40)
[2022-02-06] MEDS: cefTRIAXone 1 gm/50 mL D5W 1 GM/50 ML BAG IV SCH (21:56)
[2022-02-07 06:21] LABS: Potassium 4.8 mmol/L (3.5-5.0); eGFR CKD-EPI 78.2 (>60)
[2022-02-07] MEDS: CYCLOSPORINE 0.05% BOTH EYES SCH (10:03)
[2022-02-07] MEDS: Lidocaine PATCH 5% PATCH TRANSDERM SCH (10:05)
[2022-02-07 11:36] VITALS: BP 119/72
[2022-02-07 14:53] LABS: Rapid COVID-19 Molecular Undetected (Undetected)
[2022-02-07] MEDS ORDERED: cefTRIAXone ADVAN VIAL 1 GM in NS 0.9% 50 ML 50 ML IV SCH (21:00)
== END 2022-02-07 14:35 | DRG 871 ==
LOC: EDHOLD 21:33 → ED 21:33 → EDHOLD 02-03 01:20 → MED 02-03 01:41
PROVIDERS: ADMIT Internal Medicine; ATTEND Internal Medicine

== ENCOUNTER 2022-03-01 13:14 | Inpatient (IN) ==
[2022-03-01] MEDS ORDERED: cefTRIAXone 1 gm/50 mL D5W 1 GM/50 ML BAG IV ONE (13:42)
[2022-03-01] MEDS ORDERED: LACTATED RINGERS IV ONE (13:42)
[2022-03-01 14:49] LABS: Hematocrit 43 % (35-47); Hemoglobin 13.3 g/dL (12.0-16.0); Mean Corpuscular HGB Conc 31 g/dL (31-36); Mean Corpuscular Hemoglobin 30 pg (27-31); Mean Corpuscular Volume 98 fL (80-97); Red Blood Count 4.37 10^6 /uL (3.70-4.87); Red Cell Distribution Width 14 % (10-15); White Blood Count 15.1 10^3/uL (3.5-10.8)
[2022-03-01 15:24] LABS: Activated Partial Thrombo Time 19.4 seconds (26.0-38.0); INR 1.03 (0.89-1.11)
[2022-03-01 15:42] LABS: Albumin 3.3 g/dL (3.2-5.2); Albumin/Globulin Ratio 0.9 (1-3); C Reactive Protein 59.76 mg/L (<8.01); Calcium 8.3 mg/dL (8.6-10.3); Globulin 3.5 g/dL (2-4); Total Bilirubin 0.6 mg/dL (0.2-1.0); Total Protein 6.8 g/dL (6.4-8.9); eGFR CKD-EPI 54.1 (>60)
[2022-03-01 15:43] LABS: ABS Basophils 0.1 10^3/ul (0-0.2); ABS Lymphocytes 0.6 10^3/ul (1.0-4.8); ABS Monocytes 1.1 10^3/ul (0-0.8); Eosinophil % 0.2 %; Large Platelets Present; Lymphocyte % 4.3 %; Mean Platelet Volume 9.1 fL (7.4-10.4); Nucleated Red Blood Cells % 0.2; Platelet Count 251 10^3/uL (150-450)
[2022-03-01] MEDS ORDERED: Iohexol 350 (CONTRAST) 500 ML MDV IV ONE (15:55)
[2022-03-01 16:08] LABS: Potassium 4.3 mmol/L (3.5-5.0)
[2022-03-01 16:39] LABS: High Sensitivity Troponin 1 Hr 13 pg/mL (<15)
[2022-03-01 17:32] LABS: Urine Appearance Clear; Urine Bilirubin Negative (Negative); Urine Blood Negative (Negative); Urine Color Yellow; Urine Glucose Negative (Negative); Urine Ketones Negative (Negative); Urine Nitrite Negative (Negative); Urine Protein Negative (Negative); Urine Specific Gravity 1.018 (1.002-1.030); Urine Urobilinogen Negative (Negative)
[2022-03-01] MEDS: NS 0.9% 1000 ml BAG 1,000 ML IV SCH (18:24)
[2022-03-01] MEDS ORDERED: Saline NASAL SPRAY 0.65% BTL BOTH NARES PRN (18:57)
[2022-03-01] MEDS ORDERED: Magnesium Hydroxide LIQ 30 ML UDC PO PRN (18:57)
[2022-03-01] MEDS ORDERED: Vancomycin 1,750 MG in NS 0.9% 250 ml 250 ML IVPB SCH (19:00)
[2022-03-01] MEDS ORDERED: Vancomycin per Pharmacy 1 EA NOTE FOLLOW UP SCH (19:00)
[2022-03-01] MEDS ORDERED: Sodium Phosphate ADULT ENEMA 133 ML BTL PR ONE ×2 (19:14→20:09)
[2022-03-01] MEDS ORDERED: Cefepime 2 GM IV - ED ONCE IV ONE (19:30)
[2022-03-01] MEDS ORDERED: Vancomycin 2,000 MG in NS 0.9% 500 ml BAG 500 ML IVPB ONE (20:00)
[2022-03-01] MEDS ORDERED: HYDROcodone/ACETAMIN 5/325 mg TAB PO SCH (21:00)
[2022-03-01] MEDS: Senna TAB 8.6 mg TAB PO SCH (23:13)
[2022-03-01] MEDS: CMCS: Cyclosporine 0.05% OPHTH (NF) 0.4 ML VIAL BOTH EYES SCH (23:58)
[2022-03-01] MEDS: Heparin 5000 UNITS/ML 1 mL VIAL SUBCUT SCH (23:59)
[2022-03-02] MEDS: NS 0.9% 1000 ml BAG 1,000 ML IV SCH (02:48)
[2022-03-02 08:37] LABS: ABS Basophils 0.1 10^3/ul (0-0.2); ABS Eosinophils 0.1 10^3/ul (0-0.6); ABS Lymphocytes 1.2 10^3/ul (1.0-4.8); ABS Monocytes 0.8 10^3/ul (0-0.8); ABS Neutrophils 4.4 10^3/ul (1.5-7.7); Eosinophil % 1.6 %; Hematocrit 38 % (35-47); Lymphocyte % 18.2 %; Mean Corpuscular HGB Conc 32 g/dL (31-36); Mean Corpuscular Hemoglobin 31 pg (27-31); Mean Corpuscular Volume 97 fL (80-97); Mean Platelet Volume 8.4 fL (7.4-10.4); Nucleated Red Blood Cells % 0.1; Platelet Count 205 10^3/uL (150-450); Red Blood Count 3.86 10^6 /uL (3.70-4.87); Red Cell Distribution Width 14 % (10-15); White Blood Count 6.5 10^3/uL (3.5-10.8)
[2022-03-02 08:59] LABS: Calcium 8.3 mg/dL (8.6-10.3); Potassium 4.4 mmol/L (3.5-5.0); eGFR CKD-EPI 66.7 (>60)
[2022-03-02] MEDS ORDERED: Influenza vaccine *QUAD* *2022-23* 0.5 ML SYRINGE IM ONE (09:00)
[2022-03-02] MEDS ORDERED: Cefepime 2 GM in Dextrose 2 GM/50 ML BAG IV SCH (10:00)
[2022-03-02] MEDS: Polyethylene Glycol 3350 17 GM PACKET PO SCH (10:11)
[2022-03-02] MEDS: Heparin 5000 UNITS/ML 1 mL VIAL SUBCUT SCH (10:11)
[2022-03-02] MEDS: Senna TAB 8.6 mg TAB PO SCH ×2 (10:14→22:13)
[2022-03-02] MEDS: Lidocaine PATCH 5% PATCH TRANSDERM SCH (10:14)
[2022-03-02] MEDS: CMCS: Cyclosporine 0.05% OPHTH (NF) 0.4 ML VIAL BOTH EYES SCH ×2 (10:14→22:16)
[2022-03-02] MEDS ORDERED: Glycerin ADULT 2.4 gm SUPP PR ONE (10:33)
[2022-03-02 13:44] LABS: Magnesium 1.9 mg/dL (1.9-2.7)
[2022-03-02] MEDS ORDERED: Vancomycin 1,500 MG in NS 0.9% 250 ml 250 ML IVPB SCH (15:30)
[2022-03-02] MEDS ORDERED: HYDROcodone/ACETAMIN 5/325 mg TAB PO ONE (16:57)
[2022-03-02] MEDS: cefTRIAXone 1 gm/50 mL D5W 1 GM/50 ML BAG IV SCH (22:17)
[2022-03-03] MEDS: Senna TAB 8.6 mg TAB PO SCH ×2 (09:14→20:51)
[2022-03-03] MEDS: Polyethylene Glycol 3350 17 GM PACKET PO SCH (09:22)
[2022-03-03] MEDS: Lidocaine PATCH 5% PATCH TRANSDERM SCH (09:29)
[2022-03-03] MEDS: CMCS: Cyclosporine 0.05% OPHTH (NF) 0.4 ML VIAL BOTH EYES SCH ×2 (11:34→20:55)
[2022-03-03] MEDS ORDERED: HYDROcodone/ACETAMIN 5/325 mg TAB PO SCH (21:00)
[2022-03-03] MEDS: cefTRIAXone 1 gm/50 mL D5W 1 GM/50 ML BAG IV SCH (21:01)
[2022-03-04 06:42] LABS: Hematocrit 33 % (35-47); Hemoglobin 10.6 g/dL (12.0-16.0); Mean Corpuscular HGB Conc 33 g/dL (31-36); Mean Corpuscular Hemoglobin 32 pg (27-31); Mean Corpuscular Volume 97 fL (80-97); Mean Platelet Volume 8.9 fL (7.4-10.4); Platelet Count 193 10^3/uL (150-450); Red Blood Count 3.34 10^6 /uL (3.70-4.87); Red Cell Distribution Width 14 % (10-15); White Blood Count 6.8 10^3/uL (3.5-10.8)
[2022-03-04 06:59] LABS: Calcium 8.2 mg/dL (8.6-10.3); Potassium 4.7 mmol/L (3.5-5.0); eGFR CKD-EPI 64.1 (>60)
[2022-03-04] MEDS: Polyethylene Glycol 3350 17 GM PACKET PO SCH (10:37)
[2022-03-04] MEDS: Lidocaine PATCH 5% PATCH TRANSDERM SCH (10:38)
[2022-03-04] MEDS: Senna TAB 8.6 mg TAB PO SCH (10:40)
[2022-03-04] MEDS: CMCS: Cyclosporine 0.05% OPHTH (NF) 0.4 ML VIAL BOTH EYES SCH ×2 (11:16→22:08)
[2022-03-04 13:32] LABS: Rapid COVID-19 Molecular Undetected (Undetected)
[2022-03-04] MEDS ORDERED: Senna TAB 8.6 mg TAB PO PRN (13:39)
[2022-03-04] MEDS ORDERED: Vancomycin Trough Check NOTE FOLLOW UP ONE (15:00)
[2022-03-04] MEDS ORDERED: HYDROcodone/ACETAMIN 5/325 mg TAB PO ONE (18:06)
[2022-03-04] MEDS ORDERED: HYDROcodone/ACETAMIN 5/325 mg TAB PO PRN (18:06)
[2022-03-04] MEDS ORDERED: NS 0.9% 500 ml BAG 500 ML IV ONE (18:07)
[2022-03-04] MEDS: cefTRIAXone 1 gm/50 mL D5W 1 GM/50 ML BAG IV SCH (22:22)
[2022-03-05 06:30] LABS: ABS Basophils 0.1 10^3/ul (0-0.2); ABS Eosinophils 0.1 10^3/ul (0-0.6); ABS Lymphocytes 1.2 10^3/ul (1.0-4.8); ABS Monocytes 0.9 10^3/ul (0-0.8); ABS Neutrophils 4.5 10^3/ul (1.5-7.7); Eosinophil % 2.2 %; Hematocrit 33 % (35-47); Hemoglobin 10.7 g/dL (12.0-16.0); Lymphocyte % 17.8 %; Mean Corpuscular HGB Conc 33 g/dL (31-36); Mean Corpuscular Hemoglobin 32 pg (27-31); Mean Corpuscular Volume 97 fL (80-97); Mean Platelet Volume 8.8 fL (7.4-10.4); Platelet Count 200 10^3/uL (150-450); Red Blood Count 3.39 10^6 /uL (3.70-4.87); Red Cell Distribution Width 14 % (10-15); White Blood Count 6.8 10^3/uL (3.5-10.8)
[2022-03-05 06:49] LABS: Calcium 8.2 mg/dL (8.6-10.3); eGFR CKD-EPI 62.5 (>60)
[2022-03-05] MEDS: CMCS: Cyclosporine 0.05% OPHTH (NF) 0.4 ML VIAL BOTH EYES SCH (09:49)
[2022-03-05] MEDS: Polyethylene Glycol 3350 17 GM PACKET PO SCH (09:51)
[2022-03-05] MEDS: Lidocaine PATCH 5% PATCH TRANSDERM SCH (10:36)
[2022-03-05 10:53] VITALS: BP 109/58
== END 2022-03-05 15:10 | DRG 690 ==
LOC: ED 13:14 → SUATTDRO 18:02 → EDHOLD 18:02 → MED 22:27
PROVIDERS: ADMIT Internal Medicine; ATTEND Internal Medicine

== ENCOUNTER 2022-10-10 11:05 | Inpatient (IN) ==
[2022-10-10 11:54] LABS: ABS Eosinophils 0.1 10^3/uL (0.0-0.5); ABS Lymphocytes 1.1 10^3/uL (1.0-4.8); ABS Monocytes 0.6 10^3/uL (0.0-0.9); Eosinophil % 1.2 %; Hemoglobin 11.8 g/dL (11.5-14.3); Lymphocyte % 18.9 %; Mean Corpuscular Hemoglobin 28.9 pg (27-33); Mean Corpuscular Hgb Conc 32.8 g/dL (31-36); Mean Platelet Volume 8.8 fL (7.5-11.2); Platelet Count 246 10^3/uL (150-450); Red Cell Distribution Width 15.9 % (12-17); White Blood Count 5.9 10^3/uL (3.8-11.8)
[2022-10-10] MEDS ORDERED: Lactated Ringers 1000 ml BAG 1,000 ML IV ONE (11:54)
[2022-10-10 12:26] LABS: Albumin 3.6 g/dL (3.2-5.2); Albumin/Globulin Ratio 1.3 (1-3); C Reactive Protein 30.11 mg/L (<8.01); Calcium 8.8 mg/dL (8.6-10.3); Creatinine, Serum 0.8 mg/dL (0.51-0.95); Globulin 2.8 g/dL (2-4); Potassium 3.6 mmol/L (3.5-5.0); Total Bilirubin 0.6 mg/dL (0.2-1.0); Total Protein 6.4 g/dL (6.4-8.9); eGFR CKD-EPI 75.8 (>60)
[2022-10-10] MEDS ORDERED: GENTAMICIN ADULT IVPB SCH (16:00)
[2022-10-10] MEDS ORDERED: NS 0.9% IVPB SCH (16:00)
[2022-10-10 16:08] LABS: Urine Appearance Turbid; Urine Color Amber; Urine Specific Gravity 1.016 (1.002-1.030)
[2022-10-10 16:22] LABS: Urine Amorphous Crystals Present (Absent); Urine Bacteria Absent (Absent); Urine Red Blood Cell 3+(>10/hpf) (Absent); Urine White Blood Cell Absent (Absent)
[2022-10-10] MEDS ORDERED: Gentamicin ADULT 300 MG in NS 0.9% 100 ml BAG 100 ML IVPB SCH (18:30)
[2022-10-10 18:35] LABS: Hematocrit 30.9 % (35-45); Hemoglobin 10.3 g/dL (11.5-14.3)
[2022-10-10] MEDS ORDERED: Ondansetron 4 mg VIAL 2 MG/ML 2 ml VIAL IV PRN (21:32)
[2022-10-10] MEDS ORDERED: Naloxone 0.4 mg VIAL 0.4 mg/ml 1 ml VIAL SUBCUT PRN (22:31)
[2022-10-10] MEDS ORDERED: Nystatin TOP POWDER 15 GM BTL TOPICAL PRN (22:31)
[2022-10-11] MEDS ORDERED: Magnesium Hydroxide LIQ 30 ML UDC PO PRN (01:33)
[2022-10-11] MEDS ORDERED: Sodium Phosphate ADULT ENEMA 133 ML BTL PR PRN (01:33)
[2022-10-11 02:05] LABS: Urine Appearance Cloudy; Urine Bilirubin Negative (Negative); Urine Blood 3+ (Negative); Urine Color Amber; Urine Glucose Negative (Negative); Urine Ketones Negative (Negative); Urine Nitrite Negative (Negative); Urine Protein 2+(100 mg/dL) (Negative); Urine Specific Gravity 1.018 (1.002-1.030); Urine Urobilinogen Negative (Negative)
[2022-10-11 02:19] LABS: Urine Bacteria 1+ (Absent); Urine Red Blood Cell 3+(>10/hpf) (Absent); Urine White Blood Cell 3+(>20/hpf) (Absent); Urine Yeast Present (Absent)
[2022-10-11 05:37] LABS: ABS Eosinophils 0.1 10^3/uL (0.0-0.5); ABS Lymphocytes 1.4 10^3/uL (1.0-4.8); ABS Monocytes 0.7 10^3/uL (0.0-0.9); ABS Neutrophils 2.3 10^3/uL (1.5-7.6); Eosinophil % 2.8 %; Hematocrit 31.1 % (35-45); Hemoglobin 10.4 g/dL (11.5-14.3); Lymphocyte % 29.8 %; Mean Corpuscular Hemoglobin 29.4 pg (27-33); Mean Corpuscular Hgb Conc 33.4 g/dL (31-36); Mean Corpuscular Volume 87.8 fL (80-97); Nucleated Red Blood Cells % 0.1 /100 WBC (0.0-0.4); Platelet Count 207 10^3/uL (150-450); Red Blood Count 3.54 10^6/uL (3.63-4.92); White Blood Count 4.6 10^3/uL (3.8-11.8)
[2022-10-11 06:37] LABS: Calcium 8.2 mg/dL (8.6-10.3); Creatinine, Serum 0.73 mg/dL (0.51-0.95); Magnesium 1.7 mg/dL (1.9-2.7); Potassium 3.7 mmol/L (3.5-5.0); eGFR CKD-EPI 84.6 (>60)
[2022-10-11] MEDS ORDERED: Magnesium Sulfate 2 gm BAG 2 GM/50 ML BAG IVPB ONE (07:40)
[2022-10-11] MEDS: Senna TAB 8.6 mg TAB PO SCH ×2 (08:02→20:24)
[2022-10-11] MEDS ORDERED: Meropenem 1 GM PREMIX(*) 1 GM/50 ML BAG IV SCH (11:00)
[2022-10-11] MEDS ORDERED: Iohexol 350 (CONTRAST) 500 ML MDV IV ONE (11:08)
[2022-10-11] MEDS ORDERED: Polyethylene Glycol 3350 17 GM PACKET PO ONE (15:00)
[2022-10-11] MEDS: Magnesium Hydroxide LIQ 30 ML UDC PO SCH (20:22)
[2022-10-11] MEDS: Polyethylene Glycol 3350 17 GM PACKET PO SCH (20:23)
[2022-10-12] MEDS: Meropenem 1 GM PREMIX(*) 1 GM/50 ML BAG IV SCH ×2 (00:45→15:38)
[2022-10-12] MEDS: Polyethylene Glycol 3350 17 GM PACKET PO SCH ×2 (08:31→20:19)
[2022-10-12] MEDS: Senna TAB 8.6 mg TAB PO SCH ×2 (08:31→20:20)
[2022-10-12] MEDS: Magnesium Hydroxide LIQ 30 ML UDC PO SCH ×2 (08:31→20:19)
[2022-10-12] MEDS ORDERED: Lactated Ringers 1000 ml BAG 1,000 ML IV ONE (13:29)
[2022-10-12] MEDS ORDERED: Enoxaparin 40 MG/0.4 ML SYR SUBCUT SCH (14:00)
[2022-10-13] MEDS: Meropenem 1 GM PREMIX(*) 1 GM/50 ML BAG IV SCH ×2 (01:11→14:24)
[2022-10-13 07:12] LABS: ABS Lymphocytes 0.6 10^3/uL (1.0-4.8); ABS Monocytes 0.7 10^3/uL (0.0-0.9); ABS Neutrophils 2.3 10^3/uL (1.5-7.6); Eosinophil % 1.1 %; Hematocrit 32.6 % (35-45); Hemoglobin 10.8 g/dL (11.5-14.3); Mean Corpuscular Hemoglobin 28.9 pg (27-33); Mean Corpuscular Hgb Conc 33.1 g/dL (31-36); Mean Corpuscular Volume 87.5 fL (80-97); Mean Platelet Volume 9.2 fL (7.5-11.2); Platelet Count 204 10^3/uL (150-450); Red Blood Count 3.73 10^6/uL (3.63-4.92); Red Cell Distribution Width 15.7 % (12-17); White Blood Count 3.7 10^3/uL (3.8-11.8)
[2022-10-13 07:36] LABS: Calcium 8.1 mg/dL (8.6-10.3); Creatinine, Serum 0.7 mg/dL (0.51-0.95); Magnesium 1.9 mg/dL (1.9-2.7); Potassium 3.7 mmol/L (3.5-5.0); eGFR CKD-EPI 88.5 (>60)
[2022-10-13] MEDS: Polyethylene Glycol 3350 17 GM PACKET PO SCH ×2 (08:18→21:52)
[2022-10-13] MEDS: Senna TAB 8.6 mg TAB PO SCH ×2 (08:19→21:52)
[2022-10-13] MEDS: Magnesium Hydroxide LIQ 30 ML UDC PO SCH ×2 (08:19→21:52)
[2022-10-13 17:49] LABS: Rapid COVID-19 Molecular Detected (Undetected)
[2022-10-14] MEDS: Senna TAB 8.6 mg TAB PO SCH (07:06)
[2022-10-14] MEDS: Polyethylene Glycol 3350 17 GM PACKET PO SCH (07:06)
[2022-10-14] MEDS: Magnesium Hydroxide LIQ 30 ML UDC PO SCH (07:34)
[2022-10-14 12:38] VITALS: BP 141/82
== END 2022-10-14 13:10 | DRG 70 ==
LOC: ED 11:05 → EDHOLD 11:05 → SUATTDRO 21:32 → MEDTELE 10-11 11:17
PROVIDERS: ADMIT Hospitalist; ATTEND Internal Medicine